=== PATIENT | male | born 1960 | race Caucasian/White ===

== ENCOUNTER → 2020-04-11 12:41 | Outpatient (BNVA) | payer MEDICAID, SELFPAY | PROVIDERS: Family Provider Internal Medicine; Visit Provider Specialist | DX: G62.9 Polyneuropathy, unspecified (principal); G47.31 Primary central sleep apnea | CPT/HCPCS: 99213 ==

== ENCOUNTER → 2020-08-30 15:10 | Outpatient (BNVA) | payer MEDICAID, SELFPAY | PROVIDERS: Family Provider Internal Medicine; PCP Internal Medicine; Visit Provider Specialist | DX: G47.31 Primary central sleep apnea (principal); G62.9 Polyneuropathy, unspecified; M54.5 Low back pain; F17.220 Nicotine dependence, chewing tobacco, uncomplicated | CPT/HCPCS: 99214 ==

== ENCOUNTER → 2021-02-28 10:56 | Outpatient (BNVA) | payer MEDICAID, SELFPAY | PROVIDERS: Family Provider Internal Medicine; PCP Internal Medicine; Visit Provider Specialist | DX: G60.9 Hereditary and idiopathic neuropathy, unspecified (principal); F17.220 Nicotine dependence, chewing tobacco, uncomplicated | CPT/HCPCS: 99213 ==

== ENCOUNTER → 2021-11-13 13:18 | Outpatient (BNVA) | payer MEDICAID, SELFPAY | PROVIDERS: Family Provider Internal Medicine; PCP Family Medicine Adult Medicine; Visit Provider Family Medicine Adult Medicine | DX: Z13.6 Encounter for screening for cardiovascular disorders (principal) | CPT/HCPCS: 80053; 80061; 83036; 84443; 85025 ==

== ENCOUNTER → 2022-06-05 09:01 | Outpatient (BNVA) | payer MEDICAID, SELFPAY | PROVIDERS: Family Provider Internal Medicine; PCP Family Medicine Adult Medicine; Visit Provider Specialist | DX: G62.89 Other specified polyneuropathies (principal); M54.50 Low back pain, unspecified | CPT/HCPCS: 99213; 99214 ==

== ENCOUNTER 2022-07-09 11:34 | Inpatient (IN) | payer MEDICAID, SELFPAY ==
[2022-07-09 11:36] VITALS: BP 144/79; PULSE 81; RESP 16; TEMP 36.7; O2SAT 99; BMI 32.5
[2022-07-09 12:22] LABS: Basophils # 0.1 10^3/uL (0.0-0.1); Basophils % 0.7 %; Eosinophils # 0.6 10^3/uL (0.0-0.8); Eosinophils % 3.5 %; Hematocrit 42.3 % (42.0-52.0); Hemoglobin 13.6 g/dL (11.7-16.6); Lymphocytes # 1.4 10^3/uL (0.8-4.8); Lymphocytes % 8.6 %; Mean Corpuscular HGB Conc 32.2 g/dL (30.0-36.0); Mean Corpuscular Hemoglobin 30.5 pg (28.0-34.0); Mean Corpuscular Volume 94.8 fl (80-94); Mean Platelet Volume 11.4 fL (7.4-10.4); Monocytes # 1.3 10^3/uL (0.2-0.9); Monocytes % 7.6 %; Neutrophils # 13.13 10^3/uL (1.8-7.7); Neutrophils % 78.6 %; Nucleated Red Blood Cells % 0 %; Platelet Count 247 10^3/cmm (130-400); Red Blood Count 4.46 10^6/uL (4.1-5.3); Red Cell Distribution Width 13.2 % (12.1-15.1); White Blood Count 16.7 10^3/uL (4.0-10.0)
--- NOTE | 2022-07-09 12:31 | ED_ITS ---
HPI - Extremity Problem General: Chief complaint: Extremity Problem,Nontraumatic Stated complaint: Right hand swelling Time Seen by Provider: 07/09/22 11:55 Source: patient Mode of arrival: ambulatory Limitations: no limitations History of Present Illness: 62-year-old male presents emergency room with s welling in his right hand. 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 He has low-grade subjective fever as well. He is just generally not feeling well he has not had any drainage from anywhere in the hand but he is having difficulty closing his fist because of the amount of swelling. There is redness focal to the first and second second and third metatarsal space areas. No loss of sensation in the hand. MD Complaint: extremity swelling Onset (ago): week(s) (1) Location: right and upper extremity (And) Quality: aching Radiation: proximal Relieving factors: nothing Exacerbating factors: nothing Associated symptoms: Reports arthralgias, myalgias and rash; Deny chest pain, fever(s) or short of breath Context: other (Recent minor trauma) Review of Systems Const: Denies: fever(s), chills, fatigue or malaise ENMT: Denies: throat pain, ear or mastoid pain, nasal discharge or nasal congestion Card: Denies: chest pain Resp: Denies: dyspnea, productive cough or non-productive cough GI: Denies: abdominal pain, nausea, vomiting, hematemesis, coffee ground emesis, diarrhea, constipation, bloating, hematochezia or melena : Denies: flank pain, difficulty urinating, dysuria, urinary frequency or urinary urgency Musc: Reports: extremity pain and extremity swelling Skin/Breast: Reports: rash, erythema and skin tenderness PFS ED PFSH: Medical History (Updated 07/12/22 @ 16:48 by Yon Mckeon DO) Central sleep apnea Chronic GERD COPD (chronic obstructive pulmonary disease) Familial peripheral neuropathy Hearing loss Hyperlipidemia Hypertension Obesity (BMI 30.0-34.9) Surgical History History of back surgery Family History Other CAD (coronary artery disease) Cancer Social History Smoking and tobacco status: current every day smoker smokeless tobacco Smokeless tobacco user: chewing tobacco Smokeless tobacco details: 4 cans a weeks Alcohol intake: current Alcohol intake frequency: few times a week History of recent travel: No Physical Exam Const: GENERAL APPEARANCE: cooperative and comfortable ORIENTATION/CONSCIOUSNESS: Yes awake HENMT: COMMON NORMALS: normocephalic, atraumatic and hearing grossly normal bilaterally HEAD & SCALP: normocephalic and atraumatic Resp: COMMON NORMALS: normal respiratory effort, No retractions, No use of ac cessory muscles and clear to auscultation bilaterally AUSCULTATION: clear to auscultation bilaterally Cardio: COMMON NORMALS: regular rate, regular rhythm and No murmurs present (Cardio) RATE: regular rate RHYTHM: regular rhythm GI: COMMON NORMALS: Soft to palpation and No hepatosplenomegaly present AUSCULTATION: Yes normoactive bowel sounds PALPATION: Yes Soft to palpation, No Tenderness to palpation present (GI), No Guarding due to palpation present ( GI) and Yes No hepatosplenomegaly present Extremity: OTHER: Swelling of the right hand particularly over the second and third fingers. There is proximal lymph and genetic change extending to the elbow no epitrochlear or axillary nodes. Tender on palpation no abscess formation. 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 I am concerned about the degree of swelling and the rapid onset. Discussed with orthopedics. There is no clear abscess but there is a phlegmon potentially early forming abscess. Will admit to hospitalist start on IV vancomycin consult orthopedics. I discussed Dr. Escalante he is willing to consult on the patient. Medical Records I reviewed the patient's medical records. Lab Data I reviewed the patient's lab results. : 07/12/22 01:59 07/12/22 01:[address] 07/09/22 15:42 IMPRESSION: 1. No foreign body or fracture. 2. Large amount of cellulitis and phlegmonous changes, most significantly centered around the second metacarpal and base of the thumb. At this time there is no well formed enhancing abscess but there is a large amount soft tissue inflammation and phlegmon within the thenar eminence. Laboratory Results WBC 16.2 10^3/uL (4.0-10.0) H 07/10/22 05:05 RBC 4.17 10^6/uL (4.1-5.3) 07/10/22 05:05 Hgb 12.6 g/dL (11.7-16.6) 07/10/22 05:05 Hct 40.1 % (42.0-52.0) L 07/10/22 05:05 MCV 96.2 fl (80-94) H 07/10/22 05:05 MCH 30.2 pg (28.0-34.0) 07/10/22 05:05 MCHC 31.4 g/dL (30.0-36.0) 07/10/22 05:05 RDW 13.3 % (12.1-15.1) 07/10/22 05:05 Plt Count 240 10^3/cmm (130-400) 07/10/22 05:05 MPV 11.4 fL (7.4-10.4) H 07/10/22 05:05 Neut % (Auto) 77.7 % 07/10/22 05:05 Lymph % (Auto) 9.1 % 07/10/22 05:05 [place] % (Auto) 7.8 % 07/10/22 05:05 Eos % (Auto) 3.8 % 07/10/22 05:05 Baso % (Auto) 0.7 % 07/10/22 05:05 Neut # (Auto) 12.56 10^3/uL (1.8-7.7) H 07/10/22 05:05 Lymph # (Auto) 1.5 10^3/uL (0.8-4.8) 07/10/22 05:05 [place] # (Auto) 1.3 10^3/uL (0.2-0.9) H 07/10/22 05:05 Eos # (Auto) 0.6 10^3/uL (0.0-0.8) 07/10/22 05:05 Baso # (Auto) 0.1 10^3/uL (0.0-0.1) 07/10/22 05:05 Nucleated RBC % (auto) 0 % 07/10/22 05:05 Nucleated RBCs # 0.0 /100WBC 07/10/22 05:05 ESR 36 mm/hr (0-10) H 07/09/22 12:07 Sodium 135 mmol/L (136-145) L 07/10/22 06:08 Potassium 4.3 mmol/L (3.5-5.1) 07/10/22 06:08 Chloride 102 mmol/L (98-107) 07/10/22 06:08 Carbon Dioxide 23 mmol/L (22-29) 07/10/22 06:08 Anion Gap 14.3 (5-19) 07/10/22 06:08 BUN 16 mg/dL (8-23) 07/10/22 06:08 Creatinine 1.0 mg/dL (0.7-1.2) 07/10/22 06:08 GFR Calculation 76.2 mL/min (90-130) L 07/10/22 06:08 Glucose 123 mg/dL (65-115) H 07/10/22 06:08 Calculated Osmolality 283 mOsm/kg (285-295) L 07/10/22 06:08 Calcium 9.4 mg/dL (8.5-10.5) 07/10/22 06:08 Total Bilirubin 0.4 mg/dL (0.15-1.2) 07/10/22 06:08 AST 9 U/L (0-40) 07/10/22 06:08 ALT 12 U/L (0-41) 07/10/22 06:08 Alkaline Phosphatase 88 U/L (40-130) 07/10/22 06:08 C-Reactive Protein 128.7 mg/L (0.0-4.9) H 07/10/22 06:08 Total Protein 6.6 g/dL (6.6-8.7) 07/10/22 06:08 Albumin 3.6 g/dL (3.5-5.2) 07/10/22 06:08 Globulin 3.0 g/dL (1.3-4.6) 07/10/22 06:08 Procalcitonin 0.10 ng/mL (0-0.5) 07/09/22 12:07 Discharge Plan Discharge Patient Disposition: Admitted As Inpatient Admit Provider: Abdiel Cid Clinical Impression: Abscess of right hand Condition: Stable Discharge Diet: Cardiac Discharge Activity: Increase activity as tolerated Coding Level of Care Code ED 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
[2022-07-09 12:38] LABS: Anion Gap 16.9 (5-19); Blood Urea Nitrogen 19 mg/dL (8-23); Calcium 9.6 mg/dL (8.5-10.5); Carbon Dioxide 24 mmol/L (22-29); Chloride 100 mmol/L (98-107); Glomerular Filtration Rate 68.3 mL/min (90-130); Glucose 112 mg/dL (65-115); Osmolality Calculated 287 mOsm/kg (285-295); Potassium 3.9 mmol/L (3.5-5.1); Sodium 137 mmol/L (136-145)
[2022-07-09] MEDS: tetanus-dipt-pertussis 0.5 mL SDV IM (12:47)
[2022-07-09] MEDS: cefTRIAXone 1,000 MG in sodium chloride 0.9% (plus) 50 ML 100 MG IV (12:48)
[2022-07-09 15:27] LABS: Erythrocyte Sedimentation Rate 36 mm/hr (0-10)
[2022-07-09] MEDS: ketorolac 30 mg/mL INJ IVP (15:33)
[2022-07-09 15:36] LABS: C Reactive Protein 94.1 mg/L (0.0-4.9)
--- NOTE | 2022-07-09 15:36 | PM.HP ---
Providers/Chief Complaint Primary Care Provider: Tyler Garcia MD Chief Complaint: Right hand swelling History of Present Illness Feliciano Malik is a 62 year old male present to the hospital for worsening of right-sided hand swelling and redness. 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 His wound healed but now last 36 hours he started noticing swelling of his right hand which has progressed all the way up to his elbow he has not noticed any fever, nausea, vomiting, chills. He does not have any history of diabetes or congestive heart failure. He does smoke tobacco on and off, he uses smokeless tobacco and drinks occasionally. In the ER he has been diagnosed with progressive cellulitis, Dr. Escalante has been consulted from the ER physician to take a look at his hand patient has severe leukocytosis 16,000, ESR is 36, I have requested CT scan of hand with contrast Review of Systems Const: Denies: chills Eyes: Denies: change in vision ENMT: Denies: throat pain Card: Denies: chest pain Resp: Denies: dyspnea GI: Denies: abdominal pain : Denies: flank pain Musc: Denies: neck pain Skin/Breast: Reports: rash, erythema, skin tenderness and skin swelling Neuro: Denies: headache(s) Psych: Denies: anxiety Endo: Denies: polyuria Jose M/Lymph: Denies: easy bruising All/Imm: Denies: urticaria Medications/Allergies Home Medications Medication Instructions Recorded Confirmed Last Taken Type montelukast 10 mg tablet 10 mg PO DAILY breathing #30 tabs 10/10/21 07/09/22 07/08/22 Rx albuterol sulfate 90 mcg/actuation See Rx Instructions .Route 06/04/22 07/09/22 Unknown Rx aerosol inhaler (ProAir HFA) .COMPLEX #8.5 grams cyclobenzaprine 10 mg tablet 10 mg PO TID PRN Muscle Pain 07/09/22 07/09/22 Unknown History fluticasone 250 mcg-salmeterol 50 2 inh inhalation BID 07/09/22 07/09/22 07/08/22 History mcg/dose blistr powdr for inhalation (Advair Diskus) gabapentin 800 mg tablet 800 mg PO QID 07/09/22 07/09/22 07/08/22 History lisinopril 5 mg tablet 5 mg PO DAILY 07/09/22 07/09/22 07/08/22 History omeprazole 20 mg capsule,delayed 20 mg PO DAILY 07/09/22 07/09/22 07/08/22 History release trazodone 50 mg tablet 50 mg PO BEDTIME 07/09/22 07/09/22 07/08/22 History Allergies Allergy/AdvReac Type Severity Reaction Status Date / Time peppermint Allergy Unknown Unknown Verified 06/05/22 09:17 PFSH Acute PFSH: Medical History (Updated 07/09/22 @ 15:45 by Shonna Baumann MD) Central sleep apnea Chronic GERD COPD (chronic obstructive pulmonary disease) Familial peripheral neuropathy Hearing loss Hyperlipidemia Hypertension Obesity (BMI 30.0-34.9) Surgical History History of back surgery Family History Other CAD (coronary artery disease) Cancer Social History Smoking and tobacco status: current every day smoker smokeless tobacco Smokeless tobacco user: chewing tobacco Smokeless tobacco details: 4 cans a weeks Alcohol intake: current Alcohol intake frequency: few times a week History of recent travel: No Vitals/I&O/Wt Last Vital Signs Temp 98.0 F 07/09/22 11:36 Pulse 81 07/09/22 11:36 Resp 16 07/09/22 11:36 BP 144/79 07/09/22 11:36 Pulse Ox 99 07/09/22 11:36 O2 Del Method 07/09/22 11:36 Weight last 48 hrs Weight 97.069 kg Physical Exam Narrative: Patient is awake and alert Currently on room air Very pleasant cooperative Looks euvolemic No sign of heart failure S1, S2 No audible stridor or wheezing Right hand swelling starts from dorsum of hand extending all the way up to wrist and redness is extending all the way up to the elbow Nontender to touch No purulent drainage Erythematous No signs of vascular compromise Patient is very pleasant and cooperative Nonfocal neuro exam Data : 07/09/22 12:07 07/09/22 12:07 Micro: Microbiology 07/09/22 12:07 Blood Culture - Preliminary Blood SPECIMEN COLLECTED 07/09/22 12:07 Blood Culture - Preliminary Blood SPECIMEN COLLECTED A&P Assessment and plan (1) Cellulitis: Plan Progressive cellulitis of hand No signs of purulence Will obtain CT of the hand with contrast rule out abscess I will give him clindamycin for toxin suppression and add vancomycin and Zosyn for now Dr. Escalante has been consulted We will keep him n.p.o. after midnight in case he needs any intervention I will hold off on DVT prophylaxis SCDs for DVT prophylaxis for now Regular diet for now N.p.o. 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
[2022-07-09 15:37] VITALS: BP 147/81; PULSE 78; RESP 17; O2SAT 99
--- NOTE | 2022-07-09 15:42 | CT_ITS ---
WS: [id number] CT RIGHT HAND WITH CONTRAST. HISTORY: Progressive cellulitis of hand Technique: All [facility] scans at [facility] use at least one of these dose optimization techniques: automated exposure control; mA and/or kV adjustment per patient size (includes targeted exams where dose is matched to clinical indication); or iterative reconstruction. Contrast: Omnipaque 350; 100 mL IV. DLP: 124.58 mGy-cm. COMPARISON: None available. There is extensive soft tissue edema along the dorsal surface of the hand. More focal soft tissue thi ckening with enhancement and edema surrounding the second metacarpal and proximal second phalanx. Add itional inflammatory changes at the base of the thumb. There is no well formed pocket there is signif icant inflammatory and phlegmonous changes. No focal well circumscribed abscess. No foreign body is i dentified. There are no fractures or lytic lesions. No evidence for osteomyelitis. CT/[place] con [id number] IMPRESSION: 1. No foreign body or fracture. 2. Large amount of cellulitis and phlegmonous changes, most significantly cent ered around the second metacarpal and base of the thumb. At this time there is no well formed enhancing abscess but there is a large amount soft tissue inflam mation and phlegmon within the thenar eminence.
[2022-07-09] MEDS: iohexol 350 mg/mL 500 mL Btl (per mL) IV (16:02)
[2022-07-09 17:17] VITALS: BP 145/79; PULSE 82; RESP 17; O2SAT 98
--- NOTE | 2022-07-09 17:19 | PM.CONSULT ---
Providers/Reason For Consult Consulting Physician/Specialty*: Landry Escalante DO/orthopedic surgery Reason for Consult*: Right hand infection with lymphangitis Requesting Physician: Dr. Mckeon Attending Physician: Shonna Baumann MD Primary Care Provider: Tyler Garcia MD History of Present Illness History of Present Illness Feliciano Malik is a 62 year old male who presents emergency department with worsening right hand swelling and erythema. 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 He states the wound had subsequently healed this was on the radial aspect of the right index finger near the level of the PIP joint stated over the past 36 hours noted significant swelling to the right hand with erythema tracking proximally. Denies any fevers chills chest pain shortness of breath nausea vomiting. Does not have any history of diabetes mellitus. No other complaints at this time. Orthopedics was consulted for evaluation and treatment recommendations. Review of Systems General: Reports: 10 or more systems reviewed and unremarkable except in HPI and below Const: Denies: fever(s) or chills Card: Denies: chest pain Resp: Denies: dyspnea GI: Denies: nausea or vomiting Musc: Reports: extremity pain and extremity swelling Medications/Allergies Home Medications Medication Instructions Recorded Confirmed Last Taken Type montelukast 10 mg tablet 10 mg PO DAILY breathing #30 tabs 10/10/21 07/09/22 07/08/22 Rx albuterol sulfate 90 mcg/actuation See Rx Instructions .Route 06/04/22 07/09/22 Unknown Rx aerosol inhaler (ProAir HFA) .COMPLEX #8.5 grams cyclobenzaprine 10 mg tablet 10 mg PO TID PRN Muscle Pain 07/09/22 07/09/22 Unknown History fluticasone 250 mcg-salmeterol 50 2 inh inhalation BID 07/09/22 07/09/22 07/08/22 History mcg/dose blistr powdr for inhalation (Advair Diskus) gabapentin 800 mg tablet 800 mg PO QID 07/09/22 07/09/22 07/08/22 History lisinopril 5 mg tablet 5 mg PO DAILY 07/09/22 07/09/22 07/08/22 History omeprazole 20 mg capsule,delayed 20 mg PO DAILY 07/09/22 07/09/22 07/08/22 History release trazodone 50 mg tablet 50 mg PO BEDTIME 07/09/22 07/09/22 07/08/22 History Allergies Allergy/AdvReac Type Severity Reaction Status Date / Time peppermint Allergy Unknown Unknown Verified 06/05/22 09:17 PFSH Acute PFSH: Medical History (Updated 07/09/22 @ 17:29 by Landry Escalante DO) Central sleep apnea Chronic GERD COPD (chronic obstructive pulmonary disease) Familial peripheral neuropathy Hearing loss Hyperlipidemia Hypertension Obesity (BMI 30.0-34.9) Surgical History History of back surgery Family History Other CAD (coronary artery disease) Cancer Social History Smoking and tobacco status: current every day smoker smokeless tobacco Smokeless tobacco user: chewing tobacco Smokeless tobacco details: 4 cans a weeks Alcohol intake: current Alcohol intake frequency: few times a week History of recent travel: No Vitals/I&O/Wt Last Vital Signs Temp 98.0 F 07/09/22 11:36 Pulse 82 07/09/22 17:17 Resp 17 07/09/22 17:17 BP 145/79 07/09/22 17:17 Pulse Ox 98 07/09/22 17:17 O2 Del Method 07/09/22 17:17 07/09/22 07/09/22 07/09/22 06:59 14:59 22:59 Intake Total 50 / 50 Balance 50 / 50 Weight last 48 hrs Weight 214 lb Physical Exam Narrative: Patient is awake and alert Very pleasant cooperative Patient right hand elevated. Noticeable swelling about the dorsal aspect of the right hand radiating into the first webspace. Patient has most erythema over the radial aspect of the right index finger into the first webspace tracking proximally on the dorsal aspect of the arm with noticeable lymphangitis. No subcutaneous gas or bullae, compartments are soft and compressible. Patient has significant decreased range of motion of the hand secondary to pain and swelling. He has no pain with passive stretch of the flexor tendon sheath of the right index finger. There is a laceration that appears healed with a small eschar and scab this has no expressible drainage noted over the radial aspect of the index finger. No significant palpable fluctuance noted however significant dense cellulitis noted over the first webspace patient has severe tenderness to palpation over the first webspace wrapping over to the A1 olivier near to the base of the thumb as well as the dorsal aspect of the index finger. No pain with resistance of flexion and extension of the index finger. Flexor and extensor tendons appear to be intact. Minimal tenderness to palpation along the flexor tendon sheath distally. Sensation tact light touch distally to the radial/ulnar/median nerve distribution as well as radial and ulnar sides of the right index finger. No tenderness to palpation over A1 pulleys of middle ring and small fingers. Fingertips warm well-perfused brisk capillary refill less than 2 seconds radial pulse 2+. Data : 07/09/22 12:07 07/09/22 12:07 Micro: Microbiology 07/09/22 12:07 Blood Culture - Preliminary Blood SPECIMEN COLLECTED 07/09/22 12:07 Blood Culture - Preliminary Blood SPECIMEN COLLECTED Other CT: My impression: CT scan with contrast of the right hand reviewed by myself there is significant cellulitic changes and subcutaneous fat stranding no evidence of subcutaneous gas. There does appear to be a abscess within the first webspace. No fracture dislocation noted. Final read pending from radiologist but at this point time concerning findings for abscess of the right hand. A&P Assessment and plan (1) Cellulitis: (2) Abscess of right hand: Plan MDM: Feliciano is a pleasant 62-year-old male who presents today with worsening right hand swelling and erythema tracking proximally. On evaluation he has significant cellulitis over the first webspace and has significant tenderness palpation of this area. He does not have findings consistent with a for Knievel signs he does have some A1 tenderness but is more within his webspace. He has elevated white count as well as ESR and CRP. At this point time findings definitely concern for a right hand infection and possible abscess. I do have a CT scan of the right hand with contrast pending final read from radiologist however on my review there does appear to have a abscess within the first webspace as well as fat stranding concerning for cellulitis as well. This point time we will have patient have diet today but he should be n.p.o. at midnight. He was placed in a [place] sling elevation would recommend empiric antibiotics as well as scheduled IV Toradol and will reevaluate tomorrow. If patient's had minimal improvement with conservative treatment he may need surgical irrigation debridement of the right hand. Patient understands agrees with current plan. All questions answered. He was placed into a volar splint in [place] sling and will elevate overnight. Ice as needed. Appreciate hospitalist for admission and primary. [place] sling elevation right upper extremity Scheduled IV Toradol Empiric antibiotics IV Volar splint on in place N.p.o. 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 Fwd Diagnoses Cellulitis L03.90 Abscess of right hand L02.511 Time Spent (min) 50
[2022-07-09] MEDS: gabapentin 400 mg Capsule 800 MG PO (18:34)
[2022-07-09] MEDS: clindamycin 600 MG/50 ML PREMIX 100 MG IV (18:34)
--- NOTE | 2022-07-09 18:59 | PC.NURSE ---
received into room 268 at 1800 from er.report received.pt is alert and awake and oriented x 4.denies pain at present.oriented to room environment.instructed pt to call staff if needs to get up,for pain,or for any concerns /needs at all.pt verb understanding of instructions.right arm is elevated as ordered.
[2022-07-09] MEDS: piperacillin-tazobactam 3.375 GM in sodium chloride 0.9% (plus) 50 ML IV (19:26)
[2022-07-09 19:39] VITALS: BMI 32.5
[2022-07-09] MEDS: trazodone 50 mg Tablet PO (20:40)
[2022-07-09] MEDS: vancomycin 1,500 MG/300 ML PIGGYBACK 200 MG IV (23:08)
[2022-07-09 23:14] VITALS: RESP 18
[2022-07-09] MEDS: morphine IR 15 mg Tablet PO (23:14)
[2022-07-10] VITALS (21 sets, daily range): BP systolic 116–174; BP diastolic 57–84; PULSE 67–84; RESP 12–18; TEMP 36.4–37.8; O2SAT 95–100
[2022-07-10] MEDS: ipratropium-albuterol 3 mL Neb INHALATION ×3 (00:31→14:09)
[2022-07-10] MEDS: clindamycin 600 MG/50 ML PREMIX 100 MG IV ×2 (03:05→08:50)
[2022-07-10] MEDS: piperacillin-tazobactam 3.375 GM in sodium chloride 0.9% (plus) 50 ML IV ×3 (03:52→18:25)
[2022-07-10 05:36] LABS: Basophils # 0.1 10^3/uL (0.0-0.1); Basophils % 0.7 %; Eosinophils # 0.6 10^3/uL (0.0-0.8); Eosinophils % 3.8 %; Hematocrit 40.1 % (42.0-52.0); Hemoglobin 12.6 g/dL (11.7-16.6); Lymphocytes # 1.5 10^3/uL (0.8-4.8); Lymphocytes % 9.1 %; Mean Corpuscular HGB Conc 31.4 g/dL (30.0-36.0); Mean Corpuscular Hemoglobin 30.2 pg (28.0-34.0); Mean Corpuscular Volume 96.2 fl (80-94); Mean Platelet Volume 11.4 fL (7.4-10.4); Monocytes # 1.3 10^3/uL (0.2-0.9); Monocytes % 7.8 %; Neutrophils # 12.56 10^3/uL (1.8-7.7); Neutrophils % 77.7 %; Nucleated Red Blood Cells % 0 %; Platelet Count 240 10^3/cmm (130-400); Red Blood Count 4.17 10^6/uL (4.1-5.3); Red Cell Distribution Width 13.3 % (12.1-15.1); White Blood Count 16.2 10^3/uL (4.0-10.0)
[2022-07-10 06:39] LABS: Alanine Aminotransferase 12 U/L (0-41); Albumin Level 3.6 g/dL (3.5-5.2); Alkaline Phosphatase 88 U/L (40-130); Anion Gap 14.3 (5-19); Aspartate Amino Transferase 9 U/L (0-40); Blood Urea Nitrogen 16 mg/dL (8-23); C Reactive Protein 128.7 mg/L (0.0-4.9); Calcium 9.4 mg/dL (8.5-10.5); Carbon Dioxide 23 mmol/L (22-29); Chloride 102 mmol/L (98-107); Glomerular Filtration Rate 76.2 mL/min (90-130); Glucose 123 mg/dL (65-115); Osmolality Calculated 283 mOsm/kg (285-295); Potassium 4.3 mmol/L (3.5-5.1); Sodium 135 mmol/L (136-145); Total Bilirubin 0.4 mg/dL (0.15-1.2); Total Protein 6.6 g/dL (6.6-8.7)
[2022-07-10] MEDS: amlodipine 5 mg Tablet PO (08:39)
[2022-07-10] MEDS: pantoprazole DR 40 mg Tablet PO (08:39)
[2022-07-10] MEDS: montelukast sodium 10 mg Tablet PO (08:39)
[2022-07-10] MEDS: gabapentin 400 mg Capsule 800 MG PO ×4 (08:40→21:53)
[2022-07-10] MEDS: morphine 4 mg/mL SDV 1 mL IVP ×2 (08:43→13:41)
--- NOTE | 2022-07-10 09:15 | PM.PN ---
Subjective Subjective: Patient seen evaluate in the morning. Patient splint dressing taken down patient's had minimal to no improvement. Patient's had IV antibiotics, has been hung up in a [place] sling with strict elevation as well as been on IV Toradol. He has focalized his pain into the first webspace. He still has erythema and cellulitis and decreased range of motion. Given failure of conservative treatment would recommend surgical intervention of right hand irrigation and debridement. He has been n.p.o. since midnight. I did review the CT scan read by the radiologist which states there is some cellulitis and a phlegmon but no ring-enhancing abscess at this point time however given failure of conservative treatment would recommend surgical intervention. Patient understands risk benefits complication alternatives surgery at this point time agrees to proceed with surgical intervention. Risks include but are not limited to make it better, make it worse, worsening infection, wound complications, decreased function and range of motion of the hand. Understanding these risks he agrees to proceed with surgical intervention. Vitals/I&O/Wt Last Vital Signs Temp 98.5 F 07/10/22 08:00 Pulse 73 07/10/22 08:41 Resp 14 07/10/22 08:43 BP 127/69 07/10/22 08:00 Pulse Ox 96 07/10/22 08:41 O2 Del Method 07/10/22 08:41 07/09/22 07/10/22 07/10/22 22:59 06:59 14:59 Intake Total 350 / 400 400 / 800 50 / 50 Output Total 400 / 400 200 / 200 Balance 350 / 400 0 / 400 -150 / -150 Weight last 48 hrs Weight 214 lb Weight 214 lb Physical Exam Narrative: Examination right hand splint taken down as well as dressing. Examination of the right hand shows maintained cellulitis over the first webspace and dorsal aspect of the hand mild improvement of lymphangitis proximally. He has significant tenderness to palpation and to me it feels like palpable tense fluctuance over the first webspace. He has no pain with micromotion of the thumb joints or the index finger but due to the swelling has decreased range of motion and sensation is intact light touch distally. Distal pulses are palpable. Brisk capillary refill less than 2 seconds. Mild tenderness over the A1 olivier but no tenderness over the flexor tendon sheath of the right index finger. Data : 07/11/22 04:55 07/11/22 04:55 Micro: Microbiology 07/09/22 12:07 Blood Culture - Preliminary Blood SPECIMEN COLLECTED 07/09/22 12:07 Blood Culture - Preliminary Blood SPECIMEN COLLECTED A&P Assessment and plan (1) Abscess of right hand: (2) Cellulitis: Plan N.p.o. since midnight Nonweightbearing right upper extremity Volar splint in place Elevation in [place] sling IV antibiotics Toradol Internal medicine is primary Failure to respond to conservative treatment?recommend surgical intervention of right hand irrigation debridement with cultures today. Patient understands and agrees to proceed with current plan. All questions answered at this time. Attestations Medical Necessity Statement*: Patient has right hand infection requiring hospitalization and surgical intervention Coding Level of Care Code Acute Bisque Kiln Drawer for Adalgisa Mackenzie Diagnoses Abscess of right hand L02.511 Cellulitis L03.90 Time Spent (min) 30
--- NOTE | 2022-07-10 09:57 | P.PN_ITS ---
Subjective Subjective: Going for I&D today Low-grade fever Going for I&D today N.p.o. Vitals/I&O/Wt Last Vital Signs Temp 98.5 F 07/10/22 08:00 Pulse 73 07/10/22 08:41 Resp 14 07/10/22 08:43 BP 127/69 07/10/22 08:00 Pulse Ox 96 07/10/22 08:41 O2 Del Method 07/10/22 08:41 07/09/22 07/10/22 07/10/22 22:59 06:59 14:59 Intake Total 350 / 400 400 / 800 100 / 100 Output Total 400 / 400 200 / 200 Balance 350 / 400 0 / 400 -100 / -100 Weight last 48 hrs Weight 97.069 kg Weight 97.069 kg Physical Exam Narrative: Awake and alert Right arm covered with dressing He has tried to keep his arm above heart level Awake and alert Nonfocal neuro exam No signs of sepsis or toxic appearance Nonfocal neuro exam currently on room air Pleasant and cooperative Abdomen soft Data : 07/10/22 05:05 07/10/22 06:08 Micro: Microbiology 07/09/22 12:07 Blood Culture - Preliminary Blood SPECIMEN COLLECTED 07/09/22 12:07 Blood Culture - Preliminary Blood SPECIMEN COLLECTED A&P Assessment and plan (1) Abscess of right hand: (2) Cellulitis: Plan Right hand metacarpal space abscess formation Going for I&D today He can eat and we can start DVT prophylaxis after his surgery Plan to keep him here 1 more day and continue IV antibiotics He will most likely be able to go home by tomorrow Full code N.p.o. 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
[2022-07-10] MEDS: vancomycin 1,500 MG/300 ML PIGGYBACK 200 MG IV (12:58)
--- NOTE | 2022-07-10 14:35 | P.ANESASSM_ITS ---
Pre-Anesthetic Assessment Height/Weight: Height 1.73 m Weight 97.069 kg Temp Pulse Resp BP Pulse Ox O2 Del Method 98.8 F 78 16 127/72 97 07/10/22 11:55 07/10/22 14:18 07/10/22 14:18 07/10/22 11:55 07/10/22 14:18 07/10/22 14:18 Operation Date: 07/10/22 16:10 Proposed Procedures p Incision & Drainage Upper Extremity(Right) - Landry [place], DO Familial anesthetic complications: none Was Beta Ashish taken within 24 hours: N/A Was Clonidine taken within 24 hours: N/A Last intake: > 8hrs Social No alcohol and No tobacco Exam alert, oriented x 3, clear to auscultation bilaterally and regular rate & rhythm Airway Mallampati: Class II Dentition: full Pulmonary Chronic Obstructive Pulmonary Disease CV/HEM Hypertension GI Gastroesophageal Reflux Disease Metabolic Morbid Obesity Anesthetic Plan ASA status: 3 Anesthesia: MAC and Regional (specify below) Risk of > 500 ml blood loss (7ml/kg in children): No Medications/Allergies Home Medications Medication Instructions Recorded Confirmed Last Taken Type montelukast 10 mg tablet 10 mg PO DAILY breathing #30 tabs 10/10/21 07/09/22 07/08/22 Rx cyclobenzaprine 10 mg tablet 10 mg PO TID PRN Muscle Pain 07/09/22 07/09/22 Unknown History fluticasone 250 mcg-salmeterol 50 2 inh inhalation BID 07/09/22 07/09/22 07/08/22 History mcg/dose blistr powdr for inhalation (Advair Diskus) gabapentin 800 mg tablet 800 mg PO QID 07/09/22 07/09/22 07/08/22 History lisinopril 5 mg tablet 5 mg PO DAILY 07/09/22 07/09/22 07/08/22 History omeprazole 20 mg capsule,delayed 20 mg PO DAILY 07/09/22 07/09/22 07/08/22 History release trazodone 50 mg tablet 50 mg PO BEDTIME 07/09/22 07/09/22 07/08/22 History albuterol sulfate 90 mcg/actuation 2 puff inhalation Q6H PRN 07/10/22 Unknown Rx aerosol inhaler (Ventolin HFA) shortness of breath or wheezing #8.5 grams Allergies Allergy/AdvReac Type Severity Reaction Status Date / Time peppermint Allergy Unknown Unknown Verified 06/05/22 09:17 Current Medications Generic Name Dose Route Start Last Admin Trade Name Luisq PRN Reason Stop Dose Admin Albuterol/Ipratropium 3 ml 07/09/22 17:07 07/10/22 14:09 Ipratropium-Albuterol 3 Ml Neb INHALATION 3 ml Q6H PRN Administration SHORTNESS OF BREATH Amlodipine Besylate 5 mg 07/10/22 09:00 07/10/22 08:39 Amlodipine 5 Mg Tablet PO 5 mg DAILY AYALA Administration Gabapentin 800 mg 07/09/22 17:30 07/10/22 12:58 Gabapentin 400 Mg Capsule PO 800 mg QID AYALA Administration Piperacillin Sod/Tazobactam 50 mls @ 12.5 mls/hr 07/09/22 19:00 07/10/22 12:58 Sod 3.375 gm/ Sodium Chloride IV 12.5 mls/hr Q8H AYALA Administration Protocol Clindamycin HCl/Dextrose 600 mg in 50 mls @ 100 mls/hr 07/09/22 18:00 07/10/22 09:44 Cleocin IV 07/10/22 17:59 Infused Q8H AYALA Infusion Protocol Vancomycin/PEG/NADA/Lysine/Water 1,500 mg in 300 mls @ 200 mls/hr 07/10/22 00:00 07/10/22 12:58 Vancocin IV 200 mls/hr Q12H AYALA Administration Montelukast Sodium 10 mg 07/10/22 09:00 07/10/22 08:39 Montelukast Sodium 10 Mg Tablet PO 10 mg DAILY AAYLA Administration Morphine Sulfate 4 mg 07/09/22 17:07 07/10/22 13:41 Morphine 4 Mg/Ml Sdv 1 Ml IVP 4 mg Q4H PRN Administration SEVERE PAIN Morphine Sulfate 15 mg 07/09/22 17:07 07/09/22 23:14 Morphine Ir 15 Mg Tablet PO 15 mg Q6H PRN Administration MODERATE pAIN Pantoprazole Sodium 40 mg 07/10/22 09:00 07/10/22 08:[address] 40 Mg Tablet PO 40 mg DAILY AYALA Administration Trazodone HCl 50 mg 07/09/22 21:00 07/09/22 20:40 Trazodone 50 Mg Tablet PO 50 mg BEDTIME AYALA Administration PFS Anesthesia Medical History (Updated 07/09/22 @ 17:29 by Landry Escalante DO) Central sleep apnea Chronic GERD COPD (chronic obstructive pulmonary disease) Familial peripheral neuropathy Hearing loss Hyperlipidemia Hypertension Obesity (BMI 30.0-34.9) Surgical History History of back surgery Family History Other CAD (coronary artery disease) Cancer Social History Smoking and tobacco status: current every day smoker smokeless tobacco Smokeless tobacco user: chewing tobacco Smokeless tobacco details: 4 cans a weeks Alcohol intake: current Alcohol intake frequency: few times a week History of recent travel: No Data Anesthesia : 07/10/22 05:05 07/10/22 06:08 Short CBC 07/09/22 07/10/22 Range/Units 12:07 05:05 WBC 16.7 H 16.2 H (4.0-10.0) 10^3/uL Hgb 13.6 12.6 (11.7-16.6) g/dL Hct 42.3 40.1 L (42.0-52.0) % MCV 94.8 H 96.2 H (80-94) fl Plt Count 247 240 (130-400) 10^3/cmm Neut % (Auto) 78.6 77.7 % Neut # (Auto) 13.13 H 12.56 H (1.8-7.7) 10^3/uL BMP 07/09/22 07/10/22 07/10/22 12:07 05:05 06:08 Sodium 137 Cancelled 135 L Potassium 3.9 Cancelled 4.3 Chloride 100 Cancelled 102 Carbon Dioxide 24 Cancelled 23 BUN 19 Cancelled 16 Creatinine 1.1 Cancelled 1.0 Glucose 112 Cancelled 123 H Calcium 9.6 Cancelled 9.4 Liver Function 07/10/22 Range/Units 06:08 Total Bilirubin 0.4 (0.15-1.2) mg/dL AST 9 (0-40) U/L ALT 12 (0-41) U/L Alkaline Phosphatase 88 (40-130) U/L Albumin 3.6 (3.5-5.2) g/dL Coags 07/09/22 07/09/22 07/10/22 12:07 12:07 05:05 ESR 36 H C-Reactive Protein 94.1 H Cancelled 07/10/22 06:08 ESR C-Reactive Protein 128.7 H Microbiology 07/09/22 12:07 Blood Culture - Preliminary Blood NEGATIVE TO DATE 07/09/22 12:07 Blood Culture - Preliminary Blood NEGATIVE TO DATE Cardiac Studies: No Data to Display
--- NOTE | 2022-07-10 14:57 | PC.NURSE ---
patient off unit to surgery.
--- NOTE | 2022-07-10 15:07 | ANES.PREANE2 ---
Pre-Anesthetic Assessment Height/Weight: Height 1.73 m Weight 97.069 kg Temp Pulse Resp BP Pulse Ox O2 Del Method 97.7 F 78 18 117/57 96 07/10/22 14:43 07/10/22 14:43 07/10/22 14:43 07/10/22 14:43 07/10/22 14:43 07/10/22 14:43 Operation Date: 07/10/22 16:10 Proposed Procedures p Incision & Drainage Upper Extremity(Right) - Landry Love, DO Familial anesthetic complications: None Was Beta Ashish taken within 24 hours: N/A Was Clonidine taken within 24 hours: N/A Last intake: Intake Last Liquid Date 07/09/22 Last Liquid Time 22:00 Last Solid Date 07/09/22 Last Solid Time 22:00 Social No alcohol and No tobacco Exam alert, oriented x 3, clear to auscultation bilaterally and regular rate & rhythm Airway Mallampati: Class III Dentition: full Pulmonary Chronic Obstructive Pulmonary Disease CV/HEM Hypertension GI Gastroesophageal Reflux Disease Metabolic Hyperlipidemia and Morbid Obesity Anesthetic Plan ASA status: 3 Anesthesia: MAC and Regional (specify below) Risk of > 500 ml blood loss (7ml/kg in children): No Medications/Allergies Home Medications Medication Instructions Recorded Confirmed Last Taken Type montelukast 10 mg tablet 10 mg PO DAILY breathing #30 tabs 10/10/21 07/09/22 07/08/22 Rx cyclobenzaprine 10 mg tablet 10 mg PO TID PRN Muscle Pain 07/09/22 07/09/22 Unknown History fluticasone 250 mcg-salmeterol 50 2 inh inhalation BID 07/09/22 07/09/22 07/08/22 History mcg/dose blistr powdr for inhalation (Advair Diskus) gabapentin 800 mg tablet 800 mg PO QID 07/09/22 07/09/22 07/08/22 History lisinopril 5 mg tablet 5 mg PO DAILY 07/09/22 07/09/22 07/08/22 History omeprazole 20 mg capsule,delayed 20 mg PO DAILY 07/09/22 07/09/22 07/08/22 History release trazodone 50 mg tablet 50 mg PO BEDTIME 07/09/22 07/09/22 07/08/22 History albuterol sulfate 90 mcg/actuation 2 puff inhalation Q6H PRN 07/10/22 Unknown Rx aerosol inhaler (Ventolin HFA) shortness of breath or wheezing #8.5 grams Allergies Allergy/AdvReac Type Severity Reaction Status Date / Time peppermint Allergy Unknown Unknown Verified 06/05/22 09:17 Current Medications Generic Name Dose Route Start Last Admin Trade Name Freq PRN Reason Stop Dose Admin Albuterol/Ipratropium 3 ml 07/09/22 17:07 07/10/22 14:09 Ipratropium-Albuterol 3 Ml Neb INHALATION 3 ml Q6H PRN Administration SHORTNESS OF BREATH Amlodipine Besylate 5 mg 07/10/22 09:00 07/10/22 08:39 Amlodipine 5 Mg Tablet PO 5 mg DAILY AYALA Administration Gabapentin 800 mg 07/09/22 17:30 07/10/22 12:58 Gabapentin 400 Mg Capsule PO 800 mg QID AYALA Administration Piperacillin Sod/Tazobactam 50 mls @ 12.5 mls/hr 07/09/22 19:00 07/10/22 12:58 Sod 3.375 gm/ Sodium Chloride IV 12.5 mls/hr Q8H AYALA Administration Protocol Clindamycin HCl/Dextrose 600 mg in 50 mls @ 100 mls/hr 07/09/22 18:00 07/10/22 09:44 Cleocin IV 07/10/22 17:59 Infused Q8H AYALA Infusion Protocol Vancomycin/PEG/NADA/Lysine/Water 1,500 mg in 300 mls @ 200 mls/hr 07/10/22 00:00 07/10/22 12:58 Vancocin IV 200 mls/hr Q12H AYALA Administration Montelukast Sodium 10 mg 07/10/22 09:00 07/10/22 08:39 Montelukast Sodium 10 Mg Tablet PO 10 mg DAILY AYALA Administration Morphine Sulfate 4 mg 07/09/22 17:07 07/10/22 13:41 Morphine 4 Mg/Ml Sdv 1 Ml IVP 4 mg Q4H PRN Administration SEVERE PAIN Morphine Sulfate 15 mg 07/09/22 17:07 07/09/22 23:14 Morphine Ir 15 Mg Tablet PO 15 mg Q6H PRN Administration MODERATE pAIN Pantoprazole Sodium 40 mg 07/10/22 09:00 07/10/22 08:[address] 40 Mg Tablet PO 40 mg DAILY AYALA Administration Trazodone HCl 50 mg 07/09/22 21:00 07/09/22 20:40 Trazodone 50 Mg Tablet PO 50 mg BEDTIME AYALA Administration [facility] Anesthesia Medical History (Updated 07/09/22 @ 17:29 by Landry Escalante DO) Central sleep apnea Chronic GERD COPD (chronic obstructive pulmonary disease) Familial peripheral neuropathy Hearing loss Hyperlipidemia Hypertension Obesity (BMI 30.0-34.9) Surgical History History of back surgery Family History Other CAD (coronary artery disease) Cancer Social History Smoking and tobacco status: current every day smoker smokeless tobacco Smokeless tobacco user: chewing tobacco Smokeless tobacco details: 4 cans a weeks Alcohol intake: current Alcohol intake frequency: few times a week History of recent travel: No Data Anesthesia : 07/10/22 05:05 07/10/22 06:08 Short CBC 07/09/22 07/10/22 Range/Units 12:07 05:05 WBC 16.7 H 16.2 H (4.0-10.0) 10^3/uL Hgb 13.6 12.6 (11.7-16.6) g/dL Hct 42.3 40.1 L (42.0-52.0) % MCV 94.8 H 96.2 H (80-94) fl Plt Count 247 240 (130-400) 10^3/cmm Neut % (Auto) 78.6 77.7 % Neut # (Auto) 13.13 H 12.56 H (1.8-7.7) 10^3/uL BMP 07/09/22 07/10/22 07/10/22 12:07 05:05 06:08 Sodium 137 Cancelled 135 L Potassium 3.9 Cancelled 4.3 Chloride 100 Cancelled 102 Carbon Dioxide 24 Cancelled 23 BUN 19 Cancelled 16 Creatinine 1.1 Cancelled 1.0 Glucose 112 Cancelled 123 H Calcium 9.6 Cancelled 9.4 Liver Function 07/10/22 Range/Units 06:08 Total Bilirubin 0.4 (0.15-1.2) mg/dL AST 9 (0-40) U/L ALT 12 (0-41) U/L Alkaline Phosphatase 88 (40-130) U/L Albumin 3.6 (3.5-5.2) g/dL Coags 07/09/22 07/09/22 07/10/22 12:07 12:07 05:05 ESR 36 H C-Reactive Protein 94.1 H Cancelled 07/10/22 06:08 ESR C-Reactive Protein 128.7 H Microbiology 07/09/22 12:07 Blood Culture - Preliminary Blood NEGATIVE TO DATE 07/09/22 12:07 Blood Culture - Preliminary Blood NEGATIVE TO DATE Cardiac Studies: No Data to Display
--- NOTE | 2022-07-10 15:08 | ANES.PROC ---
Anesthesia Procedures Procedure/Date: 07/10/22 Nerve Block ^: Nerve Block 1: Main Anesthesia: general anesthesia Time Out Performed: Yes Consent: requested by attending/covering physician, from patient, risks and benefits reviewed and patient agrees to proceed Nerve block location: axillary (R) Anesthesia monitors applied: pulse oximetry, EKG, BP cuff and oxygen Nerve block position: supine Anesthetic Used: ropivicaine 0.5% (30 ml) and with decadron ( 4 mg) Ultrasound used to: recognize landmarks and visualize and ID brachial plexus Nerve Stimulator Used?: No Interscalene/Femoral BLK: 2 stimuplex 22 g needle used for position and inplane approach, visualize local anesthetic spread and no vascular puncture identified Injection: neg aspiration of heme Patient Tolerated Procedure: well Complications: none
--- NOTE | 2022-07-10 15:25 | W.PM.OPSUD ---
Surgery/Procedure H&P Update DATE OF PROCEDURE: July 10, 2022 DATE H&P PERFORMED: 07/09/22 CHANGES TO PREVIOUS DOCUMENTATION: None. Patient was seen evaluated this morning. He has had no clinical improvement states is still continues to hurt. Reviewed the CT scan again although there is no discrete abscess per radiologist read I do feel as though there is a deep infection as patient's failed to respond to conservative treatment. We talked about his treatment options as far as nonoperative and operative intervention. At this point time my recommendation would be for a right hand irrigation and debridement with cultures. The risks with surgery include but not limited to make it better make it worse, worsening infection, wound complications, loss of finger, or loss of function of the hand. Understanding these risks he agrees to proceed with surgical intervention. All questions have been answered at this time. We will plan to proceed with surgical intervention today. PREOP DIAGNOSIS: Right hand infection PRIMARY INDICATION FOR PROCEDURE: Right hand infection failed conservative treatment PLANNED PROCEDURE: Operation Date: 07/10/22 16:10 Proposed Procedures p Incision & Drainage Upper Extremity(Right) - Landry Escalante DO
--- NOTE | 2022-07-10 16:36 | P.OP_ITS ---
Brief Operative Note Date of procedure: 07/10/22 Pre-op diagnosis: Right hand infection (cellulitis with abscess Post-op diagnosis: same (Right hand first webspace abscess with cellulitis) Procedure Done: Right hand irrigation and debridement 8 cm x 4 cm x 3 cm Surgeon: Landry Escalante Estimated blood loss (mL): 5 Complications: None Post-op Plan: Patient will return to the floor. Patient recovering well. Recommend continue ice and elevation overnight. Splint on and in place. Nonweightbearing right hand. Continue IV antibiotics. We will follow cultures. Patient may have regular diet. Appreciate internal medicine is primary. Will reevaluate tomorrow morning. 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
--- NOTE | 2022-07-10 16:38 | PM.PACU ---
PACU note Narrative: Patient recovering well in PACU. Received regional anesthesia unable to perform motor and sensory examination secondary to regional. Fingertips are warm and well-perfused. Brisk capillary refill less than 2 seconds. Volar splint on in place dressings clean dry and intact. Exam: awake (See narrative for detailed exam) Disposition: back to floor
--- NOTE | 2022-07-10 16:39 | PM.OP ---
Operative Report Date of procedure: July 10, 2022 Pre-op diagnosis: Preop Diagnosis Right hand infection Post-op diagnosis: Right hand first webspace abscess Procedure done: Right Hand first webspace abscess irrigation and debridement ( 8 cm x 4 cm x 3 cm) Pathology: Aerobic and anaerobic cultures of first webspace abscess to the right hand performed and sent for microbiology Surgeon: Landry Escalante DO Estimated blood loss: 5 21 minutes IV fluids: See anesthesia record Complications: None Findings: See operative report narrative Condition: stable Disposition: floor Brief History: Patient underwent a laceration of the right index finger. Patient subsequently presented to the hospital with concern for progressively worsening right index finger. No concerning findings for extensor tendon injury however noticeable erythema and lymphangitis spreading proximally. He has significant erythema over the right index finger and dorsal aspect of the hand this does radiate into the webspace and has significant tenderness to palpation. He was subsequently admitted by the hospitalist team started on empiric antibiotics underwent conservative treatment of elevation IV antibiotics and Toradol. Orthopedic surgery team was consulted for evaluation. We monitored him overnight to see his response to conservative treatment. Patient failed to respond to conservative treatment. CT scan was reviewed with no discrete abscess however due to his failure of current conservative treatment response we talked about treatment options as far as nonoperative and operative intervention. Ultimately I recommended surgical intervention as patient was not improving. Plan for surgery will be for right hand irrigation debridement. Through shared decision-making he agreed to proceed with surgical intervention. With surgery he understands his risks include but not limited to make a better make it worse, worsening infection, decreased range of motion function to the right hand. Potential loss of finger, repeat surgeries. Understanding his risks he agrees to proceed with surgical intervention. Procedure: Patient was seen evaluate in the preoperative holding area. Consent was reviewed with patient and correct extremity was then marked. He was seen evaluated by the anesthesia department once cleared for surgery was taken back to the operative suite and the right hand was placed on an armboard. All bony prominences well-padded patient was appropriately secured to the bed. A nonsterile tourniquet was applied to the right upper extremity. Patient been receiving appropriate antibiotics on the floor. Patient right upper extremity was then prepped and draped in sterile orthopedic fashion. Final timeout performed. Patient's right upper extremity was then elevated and the tourniquet was inflated to 250 mmHg. A standard curvilinear incision was made over the dorsal aspect of the right index finger starting at the PIP joint curving around the MP joint and taken proximally in the hand. This was roughly 8 cm in size. Full-thickness skin flaps were then created and care was made to not disrupt any of the dorsal cutaneous branch of the superficial radial nerve. We identified various dorsally. Immediately after breaking through subcutaneous tissue I then utilize hemostat and immediately encountered a significant abscess wrapping from the dorsal aspect of the right index finger into the first webspace. This abscess was then cultured for aerobic and anaerobic. I then bluntly spread and broke up the loculations of the abscess process of this area. Total abscess/incision I&D was 8 cm x 4 cm x 3 cm. I then debrided this wound bed and abscess with rongeur and sharp scalpel excision of skin subcutaneous tissue as well as fascia, this was done of all devitalized tissue no tendon or bone needed debridement. I had given this communicating volarly turned the hand over and then made a longitudinal incision centered over the A1 olivier of the right index finger. Sharp scalpel through skin and subcutaneous tissue this did not tunnel or track into the webspace abscess. I then evaluated the A1 olivier which was intact and then incised the A1 olivier and released this completely with Littler dissection scissors. Neurovascular bundles were protected during this part of the procedure. I then evaluated the synovial fluid of the flexor tendon sheath which was clean and pristine with no evidence of infection. At this point I thoroughly irrigated the first dorsal webspace wound bed with gravity cystoscopy tubing. Once wound bed was then thoroughly irrigated I then reinspected the complete decompression of abscess and debridement to healthy bleeding tissue. This point time tourniquet was then deflated and hemostasis was satisfactory with pressure and electrocautery bipolar. Given the extent of the abscess selected to place a Timothy drain this was then cut and placed from the dorsal incision to the palmar incision I then sequentially closed the incision with interrupted nylon suture with care to not suture and the [place] drain. Incision was then dressed with Xeroform 4 x 4's ABD Curlex soft roll and a volar splint. Patient was then awakened from anesthesia and taken to PACU in stable condition: Disposition patient taken to PACU in stable condition will be nonweightbearing to the right hand continue elevation and IV antibiotics. We will monitor cultures. Continue with IV Toradol. [place] drain left in place and will follow patient postoperatively on the floor. Patient understands and agrees with current plan. All questions answered.
--- NOTE | 2022-07-10 17:30 | ANE.PACU2 ---
Inpatient post-anesthesia follow up: Airway intact: Yes Vital signs: Temperature 99.1 F Pulse Rate 81 Respiratory Rate 16 Blood Pressure 155/74 Pulse Oximetry 93 Oxygen Delivery Me thod Room Air Oxygen Flow Rate Fraction of Inspir ed Oxygen Hydration adequate: Yes Nausea and vomiting: No Pain level: 1 Mental status: Baseline
[2022-07-10] MEDS: enoxaparin 40 mg/0.4 mL Syringe SUBCUT (21:53)
[2022-07-10] MEDS: trazodone 50 mg Tablet PO (21:53)
[2022-07-11] VITALS (11 sets, daily range): BP systolic 103–155; BP diastolic 61–77; PULSE 70–97; RESP 14–18; TEMP 36.6–37.3; O2SAT 93–100
[2022-07-11] MEDS: vancomycin 1,500 MG/300 ML PIGGYBACK 200 MG IV ×2 (00:07→12:55)
[2022-07-11] MEDS: ipratropium-albuterol 3 mL Neb INHALATION ×2 (00:39→20:19)
[2022-07-11] MEDS: piperacillin-tazobactam 3.375 GM in sodium chloride 0.9% (plus) 50 ML IV ×3 (02:39→20:44)
[2022-07-11] MEDS: acetaminophen 500 mg Tablet PO (04:54)
[2022-07-11 05:28] LABS: Basophils # 0.1 10^3/uL (0.0-0.1); Basophils % 0.4 %; Eosinophils % 0.1 %; Hematocrit 39.8 % (42.0-52.0); Hemoglobin 12.9 g/dL (11.7-16.6); Lymphocytes % 5.3 %; Mean Corpuscular HGB Conc 32.4 g/dL (30.0-36.0); Mean Corpuscular Hemoglobin 30.4 pg (28.0-34.0); Mean Corpuscular Volume 93.9 fl (80-94); Mean Platelet Volume 11.2 fL (7.4-10.4); Monocytes % 5.3 %; Neutrophils # 16.98 10^3/uL (1.8-7.7); Neutrophils % 87.7 %; Nucleated Red Blood Cells % 0 %; Platelet Count 296 10^3/cmm (130-400); Red Blood Count 4.24 10^6/uL (4.1-5.3); Red Cell Distribution Width 13.3 % (12.1-15.1); White Blood Count 19.4 10^3/uL (4.0-10.0)
[2022-07-11 05:50] LABS: Anion Gap 17.6 (5-19); Blood Urea Nitrogen 15 mg/dL (8-23); Calcium 9.8 mg/dL (8.5-10.5); Carbon Dioxide 20 mmol/L (22-29); Chloride 101 mmol/L (98-107); Glomerular Filtration Rate 61.8 mL/min (90-130); Glucose 168 mg/dL (65-115); Osmolality Calculated 283 mOsm/kg (285-295); Potassium 4.6 mmol/L (3.5-5.1); Sodium 134 mmol/L (136-145)
[2022-07-11] MEDS: ketorolac 30 mg/mL INJ IVP ×2 (06:22→11:56)
[2022-07-11 06:51] LABS: C Reactive Protein 118.7 mg/L (0.0-4.9)
--- NOTE | 2022-07-11 07:07 | P.PN_ITS ---
Subjective Subjective: Patient seen and examined this morning. He is postop day 1 of a right hand irrigation and debridements with cultures. Patient had a noticeable abscess within the first webspace of the right hand. Cultures were taken and are pending. He has a splint on in place. He did receive regional anesthesia and block is slowly beginning to wear off. His pain has been controlled at this time. Would recommend he continue with elevation ice, IV antibiotics and Toradol with plan for dressing takedown and reevaluation tomorrow. Patient understands agrees with current plan. All questions answered. Vitals/I&O/Wt Last Vital Signs Temp 99.1 F 07/11/22 04:00 Pulse 81 07/11/22 04:00 Resp 16 07/11/22 04:00 BP 155/74 07/11/22 04:00 Pulse Ox 93 07/11/22 04:00 O2 Del Method 07/11/22 04:00 07/10/22 07/11/22 07/11/22 22:59 06:59 14:59 Intake Total 1210 / 1610 420 / 2030 Output Total Balance 1200 / 1400 420 / 1820 Weight last 48 hrs Weight 214 lb Weight 214 lb Physical Exam Narrative: Examination limited secondary to splint. His fingertips are warm well perfused. He is starting to have jehovah's witness of sensation to the fingers but still some residual effect from regional anesthesia. Fingertips have brisk capillary refill less than 2 seconds. Dressings clean dry and intact. Patient does have ability to wiggle fingers and motion does appear to be slightly improved but limited secondary to splint Data : 07/11/22 04:55 07/11/22 04:55 Micro: Microbiology 07/09/22 12:07 Blood Culture - Preliminary Blood NEGATIVE TO DATE 07/09/22 12:07 Blood Culture - Preliminary Blood NEGATIVE TO DATE A&P Assessment and plan (1) Abscess of right hand: (2) Cellulitis: Plan Regular diet today?n.p.o. at midnight Intraoperative cultures pending A.m. labs reviewed Nonweightbearing right upper extremity Splint on in place Strict elevation right upper extremity Toradol IV antibiotics?per primary Internal medicine is primary Plan to evaluate patient with complete dressing takedown tomorrow and possible pull of Timothy drain. We will see clinically how he is improving. We will keep him n.p.o. just in case he needs a repeat irrigation and debridement secondary to reaccumulation or minimal improvement. We will trend a CRP tomorrow morning to see that this is downtrending. Patient understands and agrees with current plan. All questions answered. Attestations Medical Necessity Statement*: Patient had right hand abscess with cellulitis and lymphangitis requiring hospitalization for IV antibiotics and surgical intervention Coding Level of Care Code Acute Thread Drawer for [facility] Diagnoses Abscess of right hand L02.511 Cellulitis L03.90 Time Spent (min) 20
[2022-07-11] MEDS: pantoprazole DR 40 mg Tablet PO (08:09)
[2022-07-11] MEDS: gabapentin 400 mg Capsule 800 MG PO ×4 (08:09→20:49)
[2022-07-11] MEDS: montelukast sodium 10 mg Tablet PO (08:09)
[2022-07-11] MEDS: amlodipine 5 mg Tablet PO (08:09)
--- NOTE | 2022-07-11 08:20 | P.PN_ITS ---
Subjective Subjective: This morning patient is feeling slightly tender in his right arm first metatarsal carpal space Leukocytosis 19,000, afebrile I have asked patient that I will keep him here 1 more day because of leuk ocytosis His wounds will be evaluated by Dr. Escalante today Vitals/I&O/Wt Last Vital Signs Temp 98.1 F 07/11/22 07:41 Pulse 87 07/11/22 07:41 Resp 16 07/11/22 07:41 BP 132/66 07/11/22 07:41 Pulse Ox 100 07/11/22 07:41 O2 Del Method 07/11/22 07:41 07/10/22 07/11/22 07/11/22 22:59 06:59 14:59 Intake Total 1210 / 1610 420 / 2030 Output Total Balance 1200 / 1400 420 / 1820 Weight last 48 hrs Weight 97.069 kg Weight 97.069 kg Physical Exam Narrative: Patient is awake and alert Able to ambulate on his own Right arm covered in dressing Complaining of pain No signs of cyanosis of digits Awake and alert S1, S2 Currently on room air Pleasant and cooperative Data : 07/11/22 04:55 07/11/22 04:55 Micro: Microbiology 07/09/22 12:07 Blood Culture - Preliminary Blood NEGATIVE TO DATE 07/09/22 12:07 Blood Culture - Preliminary Blood NEGATIVE TO DATE A&P Assessment and plan (1) Abscess of right hand: (2) Cellulitis: Plan Worsening leukocytosis Afebrile Cultures from the OR pending Continue IV antibiotics Patient complaining of pain in his hand today He might need further exploration by Dr. Escalante tomorrow We will keep him n.p.o. after midnight Check CRP, ferritin inflammatory markers Continue antibiotics Hold DVT prophylaxis for tonight Currently patient is on regular diet For pain he is getting opioids and anti-inflammatory medications Attestations Medical Necessity Statement*: Continue medical management Time Spent in Patient Care: 30 Coding Level of Care Code Acute Heel Pricker for Iraisg Fwsanna Diagnoses Abscess of right hand L02.511 Cellulitis L03.90
[2022-07-11 09:34] LABS: Ferritin 442 ng/mL (30-400)
[2022-07-11 09:38] LABS: Vancomycin Trough 16.7 ug/mL (10-15)
[2022-07-11] MEDS: oxyCODONE 5 mg IR Tab/Cap PO ×2 (09:58→17:40)
[2022-07-11 10:11] LABS: D Dimer 0.92 ug/mIFEU (0-0.59)
--- NOTE | 2022-07-11 10:56 | PC.CHAP ---
Pastoral Care Encounter/Spiritual Assessment Type of Contact [] Declined operations manager assistant visit [] Patient/Family/Request visit [] Outpatient visit [] Follow-up visit [] Physician referral [] Code/Alert [] Routine visit [] Staff referral [] Actively dying [] Patient sleeping [] Family support [] [] Out of room [] Palliative care [] [] Receiving care in room [] Pre-surgical visit [] Trauma [] Long length of stay [] ICU visit [x] Other: Isolation Relational/Emotional Strength [] Patient feels connected with others/family/visitors/staff [] Distress [] Loneliness/isolation [] Abandonment Spirituality of Patient [] Person of Cammie [] Attends Hinduism of their Cammie [] Believes in Prayer [] Reads Bible or Buddhism materials [] There are Spiritual issues to be addressed Dental Assistant Interventions [] Prayer [] Active listening [] Non-anxious presence [] Spiritual/emotional support [] Crisis/trauma care [] Spiritual counseling [] Bereavement support [] Provided bereavement packet [] Provided Bible/devotional materials [] Provided toy/stuffed animal, coloring book to patient or family member [] Provided Communion [] Anointing/Secretary [] Salvation [] Completed spiritual assessment [] Other: Impact on Illness or Injury [] Angry [] Fearful [] Anxious [] Often cries [] Exhaustion [] Unable to work [] Unable to attend restorationism [] Unable to walk/stand [] Unable to read [] Unable to drive [] Unable to eat/drink [] Unable to sleep [] Unable to be with family [] Patient intubated [] Other: Summary Isolation Time spent with patient 10 mins
[2022-07-11] MEDS: trazodone 50 mg Tablet PO (20:49)
[2022-07-12] VITALS (7 sets, daily range): BP systolic 103–128; BP diastolic 63–69; PULSE 59–73; RESP 16–18; TEMP 36.5–36.6; O2SAT 97–100
[2022-07-12] MEDS: oxyCODONE 5 mg IR Tab/Cap PO ×2 (00:07→08:53)
[2022-07-12] MEDS: vancomycin 1,500 MG/300 ML PIGGYBACK 200 MG IV (00:08)
[2022-07-12 02:52] LABS: Basophils # 0.1 10^3/uL (0.0-0.1); Eosinophils # 0.5 10^3/uL (0.0-0.8); Eosinophils % 3.5 %; Hematocrit 39.5 % (42.0-52.0); Hemoglobin 12.2 g/dL (11.7-16.6); Lymphocytes # 2.6 10^3/uL (0.8-4.8); Lymphocytes % 20.2 %; Mean Corpuscular HGB Conc 30.9 g/dL (30.0-36.0); Mean Corpuscular Hemoglobin 29.6 pg (28.0-34.0); Mean Corpuscular Volume 95.9 fl (80-94); Mean Platelet Volume 11.3 fL (7.4-10.4); Monocytes # 0.8 10^3/uL (0.2-0.9); Monocytes % 6.5 %; Neutrophils # 8.64 10^3/uL (1.8-7.7); Neutrophils % 67.1 %; Nucleated Red Blood Cells % 0 %; Platelet Count 268 10^3/cmm (130-400); Red Blood Count 4.12 10^6/uL (4.1-5.3); Red Cell Distribution Width 13.3 % (12.1-15.1); White Blood Count 12.9 10^3/uL (4.0-10.0)
[2022-07-12 03:11] LABS: Anion Gap 16.3 (5-19); Blood Urea Nitrogen 20 mg/dL (8-23); C Reactive Protein 61.3 mg/L (0.0-4.9); Calcium 9.4 mg/dL (8.5-10.5); Carbon Dioxide 23 mmol/L (22-29); Chloride 104 mmol/L (98-107); Glomerular Filtration Rate 76.2 mL/min (90-130); Glucose 124 mg/dL (65-115); Osmolality Calculated 292 mOsm/kg (285-295); Potassium 4.3 mmol/L (3.5-5.1); Sodium 139 mmol/L (136-145)
[2022-07-12] MEDS: piperacillin-tazobactam 3.375 GM in sodium chloride 0.9% (plus) 50 ML IV (03:45)
--- NOTE | 2022-07-12 07:34 | P.PN_ITS ---
Subjective Subjective: Patient seen and examined in the morning. His dressing subsequently taken down. Patient states his right hand feels significantly better. His dressings taken down he has wrinkles over his skin his erythema has significantly improved and resolved there is no signs of reaccumulation decreased tenderness to palpation. This point time he is improved with with intervention and no further surgical intervention required at this time. Patient stable for discharge from orthopedic standpoint. Vitals/I&O/Wt Last Vital Signs Temp 97.8 F 07/12/22 03:34 Pulse 63 07/12/22 03:34 Resp 17 07/12/22 03:34 BP 115/69 07/12/22 03:34 Pulse Ox 100 07/12/22 03:34 O2 Del Method 07/12/22 03:34 07/11/22 07/12/22 07/12/22 22:59 06:59 14:59 Intake Total 910 / 1450 470 / 1920 Output Total 600 / 600 Balance 910 / 1450 -130 / 1320 Physical Exam Narrative: Examination of the right hand splint on in place and dressing subsequently taken down. Patient has Timothy drain in place. No expressible purulence or drainage. Significant decrease in swelling patient now has wrinkles over his whole hand. Mild tenderness palpation over surgical incision site. However he does have some improvement in range of motion and minimal pain with range of motion. Sensation intact to light touch distally. Fingertips warm well perfused. Data : 07/12/22 01:59 07/12/22 01:59 Micro: Microbiology 07/10/22 16:12 Gram Stain - Final Hand - Right Anaerobic Culture - Preliminary Abscess Culture - Preliminary A&P Assessment and plan (1) Abscess of right hand: (2) Cellulitis: Plan Patient's been n.p.o. since midnight, may have diet today IV antibiotics per primary team Intraoperative culture showing strep pyogenous, internal medicine on board and will discharge on p.o. antibiotics Continue elevation and ice Patient's dressing taken down and redressed this morning Patient stable for discharge from orthopedic standpoint no further surgical intervention required at this time. Orthopedic surgery team will sign off patient at this time follow peripherally. Appreciate allowing me to partake in the care of this patient. Patient will follow-up with myself Dr. Escalante in office in 2 weeks for a recheck of right hand and suture removal. Patient given appropriate discharge instructions and will see me in office. Patient understands agrees with current plan. All questions answered. Attestations Medical Necessity Statement*: Patient had a right hand abscess and underwent surgical intervention and requiring IV antibiotics. Coding Level of Care Code Acute Human Intelligence for Adalgisa Mackenzie Diagnoses Abscess of right hand L02.511 Cellulitis L03.90 Time Spent (min) 20
--- NOTE | 2022-07-12 08:42 | P.DS_ITS ---
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 Escalante was consulted who took him to the OR for right hand irrigation and debridement with cultures 8 x 4 x 3 cm, he has a splint on his ri ght hand, he did tolerate the procedure very well, he has been asked to keep his arm elevated use ice and use 2 weeks of doxycycline and Augmentin and follow-up with Dr. Escalante within 2 weeks. Please note cultures are pending which was sent from the OR. Physical Exam Narrative: Awake and alert No signs of right hand purulent drainage Right hand is showing signs of healing with good skin wrinkling without any edema Patient is hemodynamically stable Currently on room air Nonfocal neuro exam S1, S2 Abdomen is soft Discharge Data Studies Completed and Pending Completed Studies During Hospitalization Category Date Time Status CT hand RT w con [id number] Stat Cat Scan 07/09/22 15:42 Completed Pending at discharge Category Date Time Status Abscess Culture and Gram Stain Routine Lab 07/10/22 16:12 Results Anaerobic Culture Routine Lab 07/10/22 16:12 Results Blood Culture Stat Lab 07/09/22 12:07 Results Radiology Impressions Hand CT 07/09/22 15:42 IMPRESSION: 1. No foreign body or fracture. 2. Large amount of cellulitis and phlegmonous changes, most significantly centered around the second metacarpal and base of the thumb. At this time there is no well formed enhancing abscess but there is a large amount soft tissue inflammation and phlegmon within the thenar eminence. Laboratory Results WBC 12.9 10^3/uL (4.0-10.0) H 07/12/22 01:59 RBC 4.12 10^6/uL (4.1-5.3) 07/12/22 01:59 Hgb 12.2 g/dL (11.7-16.6) 07/12/22 01:59 Hct 39.5 % (42.0-52.0) L 07/12/22 01:59 MCV 95.9 fl (80-94) H 07/12/22 01:59 MCH 29.6 pg (28.0-34.0) 07/12/22 01:59 MCHC 30.9 g/dL (30.0-36.0) 07/12/22 01:59 RDW 13.3 % (12.1-15.1) 07/12/22 01:59 Plt Count 268 10^3/cmm (130-400) 07/12/22 01:59 MPV 11.3 fL (7.4-10.4) H 07/12/22 01:59 Neut % (Auto) 67.1 % 07/12/22 01:59 Lymph % (Auto) 20.2 % 07/12/22 01:59 [place] % (Auto) 6.5 % 07/12/22 01:59 Eos % (Auto) 3.5 % 07/12/22 01:59 Baso % (Auto) 1.0 % 07/12/22 01:59 Neut # (Auto) 8.64 10^3/uL (1.8-7.7) H 07/12/22 01:59 Lymph # (Auto) 2.6 10^3/uL (0.8-4.8) 07/12/22 01:59 [place] # (Auto) 0.8 10^3/uL (0.2-0.9) 07/12/22 01:59 Eos # (Auto) 0.5 10^3/uL (0.0-0.8) 07/12/22 01:59 Baso # (Auto) 0.1 10^3/uL (0.0-0.1) 07/12/22 01:59 Nucleated RBC % (auto) 0 % 07/12/22 01:59 Nucleated RBCs # 0.0 /100WBC 07/12/22 01:59 ESR 36 mm/hr (0-10) H 07/09/22 12:07 D-Dimer 0.92 ug/mIFEU (0-0.59) H 07/11/22 08:52 Sodium 139 mmol/L (136-145) 07/12/22 01:59 Potassium 4.3 mmol/L (3.5-5.1) 07/12/22 01:59 Chloride 104 mmol/L (98-107) 07/12/22 01:59 Carbon Dioxide 23 mmol/L (22-29) 07/12/22 01:59 Anion Gap 16.3 (5-19) 07/12/22 01:59 BUN 20 mg/dL (8-23) 07/12/22 01:59 Creatinine 1.0 mg/dL (0.7-1.2) 07/12/22 01:59 GFR Calculation 76.2 mL/min (90-130) L 07/12/22 01:59 Glucose 124 mg/dL (65-115) H 07/12/22 01:59 Calculated Osmolality 292 mOsm/kg (285-295) 07/12/22 01:59 Calcium 9.4 mg/dL (8.5-10.5) 07/12/22 01:59 Ferritin 442 ng/mL (30-400) H 07/11/22 08:52 Total Bilirubin 0.4 mg/dL (0.15-1.2) 07/10/22 06:08 AST 9 U/L (0-40) 07/10/22 06:08 ALT 12 U/L (0-41) 07/10/22 06:08 Alkaline Phosphatase 88 U/L (40-130) 07/10/22 06:08 C-Reactive Protein 61.3 mg/L (0.0-4.9) H 07/12/22 01:59 Total Protein 6.6 g/dL (6.6-8.7) 07/10/22 06:08 Albumin 3.6 g/dL (3.5-5.2) 07/10/22 06:08 Globulin 3.0 g/dL (1.3-4.6) 07/10/22 06:08 Procalcitonin 0.10 ng/mL (0-0.5) 07/09/22 12:07 Vancomycin Trough 16.7 ug/mL (10-15) H 07/11/22 08:52 Vitals Last Vital Signs Temp 97.7 F 07/12/22 07:49 Pulse 59 L 07/12/22 07:49 Resp 16 07/12/22 07:49 BP 103/63 07/12/22 07:49 Pulse Ox 97 07/12/22 07:49 O2 Del Method 07/12/22 07:49 Discharge Plan Discharge Patient Disposition: Home Condition: Stable Prescriptions: New oxycodone-acetaminophen 5-325 mg tablet 1 tab PO Q8H PRN (Reason: pain) Qty: 20 0RF amoxicillin-pot clavulanate 875-125 mg tablet 1 tab PO BID Qty: 28 0RF doxycycline hyclate 100 mg tablet 100 mg PO BID 14 Days Qty: 28 0RF sennosides-docusate sodium [Senna-S] 8.6-50 mg tablet 1 tab-cap PO DAILY Qty: 20 0RF Continued montelukast 10 mg tablet 10 mg PO DAILY Qty: 30 10RF albuterol sulfate [Ventolin HFA] 90 mcg/actuation HFA aerosol inhaler 2 puff inhalation Q6H PRN (Reason: shortness of breath or wheezing) Qty: 8.5 5RF cyclobenzaprine 10 mg tablet 10 mg PO TID PRN (Reason: Muscle Pain) Advair Diskus 250-50 mcg/dose blister with device 2 inh inhalation BID trazodone 50 mg tablet 50 mg PO BEDTIME gabapentin 800 mg tablet 800 mg PO QID omeprazole 20 mg capsule,delayed release(DR/EC) 20 mg PO DAILY lisinopril 5 mg tablet 5 mg PO DAILY Discharge Orders: Discharge Order (Routine); Ordered 07/12/22 Ordered By: Shonna Baumann Referrals: Tyler Garcia MD [Primary Care Provider] - Landry Escalante DO [Physician] - 2 weeks Discharge Diet: Cardiac Discharge Activity: Increase activity as tolerated Patient Instructions: Opioid Safety Activity Restrictions/Additional Instructions: Please finish 2 weeks antibiotic regimen You will follow-up with your surgeon as follow-up for your wound care Discharge Attestations Time Spent in Discharge Care*: less than 30 min Quality Metrics Clinical Quality Measures [ No reported AMI, CVA or VTE this stay] Coding Level of Care Code Acute Chg FW DC note Diagnoses Abscess of right hand L02.511 Cellulitis L03.90
[2022-07-12] MEDS: pantoprazole DR 40 mg Tablet PO (08:45)
[2022-07-12] MEDS: montelukast sodium 10 mg Tablet PO (08:45)
[2022-07-12] MEDS: amlodipine 5 mg Tablet PO (08:45)
[2022-07-12] MEDS: gabapentin 400 mg Capsule 800 MG PO (08:45)
== END 2022-07-12 10:42 | disposition home or self-care (01) | DRG 580 ==
LOC: ER 16:43 → MEDSURG 17:13
PROVIDERS: Student in an Organized Health Care Education/Training Program; Admitting Provider Student in an Organized Health Care Education/Training Program; Emergency Provider Family Medicine; PCP Family Medicine Adult Medicine; Visit Provider Internal Medicine
PROC: 0JBJ0ZZ Excision of Right Hand Subcutaneous Tissue and Fascia, Open Approach (ICD-10-PCS; principal; 2022-07-10 16:00)
DX: L03.113 Cellulitis of right upper limb (principal); L02.511 Cutaneous abscess of right hand; G47.31 Primary central sleep apnea; K21.9 Gastro-esophageal reflux disease without esophagitis; J44.9 Chronic obstructive pulmonary disease, unspecified; G62.89 Other specified polyneuropathies; E78.5 Hyperlipidemia, unspecified; I10 Essential (primary) hypertension; F17.220 Nicotine dependence, chewing tobacco, uncomplicated; Z23 Encounter for immunization; E66.01 Morbid (severe) obesity due to excess calories; Z68.32 Body mass index [BMI] 32.0-32.9, adult
CPT/HCPCS: 36415; 73201; 80048; 80053; 80202; 82728; 84145; 85025; 85378; 85651; 86140; 87040; 87070; 87075; 87186; 87205; 90471; 90715; 94640; 96365; 96367; 96372; 96375; 99285; G0378; J0696; J1100; J1650; J1885; J2270; J2543; J2704; J2795; J3010; J3370; J3490; Q9967

== ENCOUNTER 2024-04-12 14:43 | Outpatient (CLI) | payer MEDICAID, SELFPAY ==
--- NOTE | 2024-04-12 14:30 | CT_ITS ---
WS: [id number] LDCT LUNG CANCER SCREENING TECHNIQUE: Noncontrast CT of the chest with coronal and sagittal reformatted images. CLINICAL INFORMATION: smoker COMPARISON: None. DLP: 85.52 mGy.cm DIvol: Mean CTDIvol: 1.90 (mGy) All CT scans at [facility] use at least one of these dose optimization techniques: automat ed exposure control; mA and/or kV adjustment per patient size (includes targeted exams where dose is matched to clinical indication); or iterative reconstruction. FINDINGS: Small nodule LEFT upper lobe measuring 3 mm. Normal caliber thoracic aorta. Mild aortic calcification. No mediastinal or hilar lymphadenopathy. No axillary lymphadenopathy. Small esophageal hiatal hernia. 1.6 cm LEFT adrenal adenoma. 1.0 cm RIGHT adrenal adenoma. Indetermin ate partially evaluated LEFT renal cortical lesion measuring 1.2 cm. Recommend further evaluation wit h ultrasound and/or contrast-enhanced CT abdomen pelvis. . CT/CT lung screening [id number] IMPRESSION: Partially visualized indeterminate LEFT renal lesion measuring 1.2 cm posterior upper pole. Recommend further evaluation with ultrasound and/or contrast-enhan alejandrina CT abdomen pelvis. LUNG-RADS: 2S-Benign Appearance or Behavior with Significant Findings FOLLOW UP: 12 Month: Continue annual screening with LDCT
== END 2024-04-12 14:44 | disposition home or self-care (01) ==
PROVIDERS: PCP Family Medicine Adult Medicine; Visit Provider Family Medicine Adult Medicine
DX: Z12.2 Encounter for screening for malignant neoplasm of respiratory organs (principal); J43.1 Panlobular emphysema; F17.200 Nicotine dependence, unspecified, uncomplicated; D35.02 Benign neoplasm of left adrenal gland
CPT/HCPCS: 71271

== ENCOUNTER 2024-12-02 15:57 | Outpatient (CLI) | payer MEDICAID, SELFPAY ==
--- NOTE | 2024-12-02 16:00 | US_ITS ---
WS: [id number] RENAL ULTRASOUND HISTORY: lesion L kidney on LDCT 05/01 COMPARISON: CT lung screening 04/12/2024 TECHNIQUE: 2-D and color Doppler imaging of the kidney submitted. Right kidney: 10.8 cm x 4.1 cm x 3.9 cm. Cortex: 1.0 cm Normal echogenicity with no hydronephrosis or mass. Left kidney: 8.5 cm x 5.8 cm x 6.3 cm. Cortex: 1.1 cm Normal size kidney. Exophytic hypoechoic mass from the superior kidney measures 1.5 x 1.4 x 1.5 cm. This corresponds to the mass seen on the CT from 04/12/2024. Due to the position of this mass and body habitus cannot be further characterized. This mass was not present on a CT from 2014. Aorta: Normal. Urinary Bladder: Minimally distended bladder. Prostate gland is enlarged and heterogeneous. US/US renal BI* [id number] IMPRESSION: 1. Indeterminate exophytic mass from the superior pole LEFT kidney measures 1. 5 x 1.4 x 1.5 cm. Complex cyst versus small solid renal mass. Renal mass was no t present in 2015. Recommend additional evaluation. CT or MRI with and without contrast as renal mass protocol may be obtained. 2. No hydronephrosis. 3. Prostate enlargement and heterogeneity.
== END 2024-12-02 15:58 | disposition home or self-care (01) ==
PROVIDERS: PCP Family Medicine; Visit Provider Family Medicine
DX: N28.89 Other specified disorders of kidney and ureter (principal); N40.0 Benign prostatic hyperplasia without lower urinary tract symptoms
CPT/HCPCS: 76770

== ENCOUNTER → 2024-12-06 11:44 | Outpatient (BNVA) | payer MEDICAID, SELFPAY | PROVIDERS: PCP Family Medicine; Referring Provider Family Medicine; Visit Provider Student in an Organized Health Care Education/Training Program | DX: Z12.11 Encounter for screening for malignant neoplasm of colon (principal); R12 Heartburn | CPT/HCPCS: 80053; 80061; 82607; 83036; 84443; 85025; 99204 ==

== ENCOUNTER 2024-12-17 14:45 | Outpatient (CLI) | payer MEDICAID, SELFPAY ==
--- NOTE | 2024-12-17 14:45 | CTR_ITS ---
PROCEDURE INFORMATION: Exam: CT Abdomen And Pelvis Without And With Contrast Exam date and time: 12/17/2024 3:10 PM Age: 64 years old Clinical indication: Abnormal findings; Abnormal radiologic finding of the abdomen; Radiologic exam and body structure: CT lung screen; Prior surgery; Surgery date: 6+ months; Surgery type: Lumbar; Additional info: Left kidney mass on ldct and US TECHNIQUE: Imaging protocol: Computed tomography of the abdomen and pelvis without and with contrast. 3D rendering (Not supervised by radiologist): MIP and/or 3D reconstructed images were created by the technologist. Radiation optimization: All CT scans at this facility use at least one of these dose optimization techniques: automated exposure control; mA and/or kV adjustment per patient size (includes targeted exams where dose is matched to clinical indication); or iterative reconstruction. Contrast material: OMNI 350; Contrast volume: 100 ml; Contrast route: INTRAVENOUS (IV); COMPARISON: US renal BI* [id number] 12/02/2024 4:01 PM RADIATION DOSE METRICS: Total DLP (mGy-cm): 2375.93 FINDINGS: Lungs: There is a 3 mm sized noncalcified nodule posterior left lower lobe image number 10 of series 6. For patients at low risk (minimal or absent history of smoking and of other known risk factors), no routine follow-up is indicated. For patients at high risk (history of smoking or of other known risk factors), consider optional CT Chest at 12 months. (Reference: Therese) Diaphragm: There is a small hiatal hernia. Liver: There is no focal abnormality within the liver. Gallbladder and biliary ducts: The gallbladder is normal. There is no common bile duct dilation. Pancreas: The pancreas is normal. Spleen: The spleen is normal. Adrenal glands: There is a 1.5 cm sized right adrenal nodule. This measures 6 Hounsfield units on the noncontrast study is consistent with benign adrenal adenoma. There is also a 1 point 6 cm sized nodule of the left adrenal gland with density on the noncontrast examination of less than 0 also consistent with benign adrenal adenoma. Kidneys and ureters: There is a tiny 4 mm sized hypodensity upper pole right kidney most likely benign simple cyst but too small to definitively characterize by CT scanning. No specific follow-up is necessary. There is a 10 x 12 mm exophytic nonenhancing mass arising from the posterior aspect of the mid right kidney. The density on nonenhanced CT scan is 28.6 Hounsfield units. There is no wall thickening or visible septation. This is a benign Bosniak 2 lesion requiring no further follow-up. There is a 1.7 cm sized exophytic nonenhancing mass arising from the posterior aspect of the upper pole of the left kidney. There is no wall thickening or visible septation. This measures 16 Hounsfield units on noncontrast examination and is consistent with benign Bosniak 1 type lesion requiring no further follow-up. There is a tiny cortical cyst in the lower pole of the left kidney too small to definitively characterize by CT scanning requiring no further follow-up. There is no evidence of hydronephrosis. There is no evidence of renal or ureteral calcifications. Stomach and bowel: There is no evidence of colitis/diverticulitis. There is no evidence of intestinal obstruction. In the right lower quadrant adjacent to the cecum there is a partly septated tubular cystic mass measuring 5.8 x 2.3 x 2.7 cm. This has a relatively thin enhancing wall with a single septation and curvilinear calcifications at its base. This lesion could represent mucocele of the appendix although differential considerations would include Meckel's diverticulum or other cystic mass. This finding could be due to a mucinous adenocarcinoma. Surgical evaluation is recommended. Appendix: Not identified Intraperitoneal space: There is no evidence of free intraperitoneal fluid. There is no evidence of free intraperitoneal fluid. Vasculature: The aorta is normal. A retroaortic left renal vein is incidentally noted. Lymph nodes: There is no evidence of lymphadenopathy. Urinary bladder: Unremarkable as visualized. Reproductive: The prostate demonstrates moderate nonspecific enlargement. The seminal vesicles are normal. The prostate gland demonstrates nonspecific parenchymal calcifications. Bones/joints: The lumbar spine demonstrates moderate degenerative changes at multiple levels. Soft tissues: There are bilateral inguinal hernias containing only fat. CT/CT abdomen pelvis wo/w [id number] IMPRESSION: 1. Small bilateral benign-appearing renal cysts requiring no further follow-up. 2. Bilateral benign adrenal adenomas 3. Cystic right lower quadrant mass abutting the cecum worrisome for malignancy. Surgical consultation advised COMMENTS: 1. THIS REPORT CONTAINS FINDINGS THAT MAY BE CRITICAL TO PATIENT CARE. The findings were verbally communicated via telephone conference with ZAHRA Aden at 5:50 PM CDT on 12/17/2024. The findings were acknowledged and understood. 2. Consistent with the [employer]'s Incidental Findings Committee white paper (J Am Rob Radiol 2017): Any incidental adrenal lesion less than 1 cm is likely benign. No follow-up imaging is recommended for these lesions per consensus recommendations based on imaging criteria. Further lab evaluation could be pursued if warranted based on clinical findings. 3. Consistent with the [employer]'s Incidental Findings Committee white paper (J Am Rob Radiol 2017): For any incidental adrenal lesion greater than or equal to 1 cm but less than or equal to 4 cm classified in this report as benign, likely benign, or containing fat (including classification as an adenoma or myelolipoma), no follow-up imaging is recommended per consensus recommendations based on imaging criteria. Further lab evaluation could be pursued if warranted based on clinical findings. 4. Consistent with the [employer]'s Incidental Findings Committee white paper (J Am Rob Radiol 2018): Any incidental renal lesion less than 1 cm or classified as too small to characterize, or any incidental cystic renal lesion characterized as simple-appearing, is likely benign. No follow-up imaging is recommended for these lesions per consensus recommendations based on imaging criteria. REFERENCES: Therese H, et al. Guidelines for Management of Incidental Pulmonary Nodules Detected on CT Images: From the [employer] 2017. Radiology. 2017;284(1):228-243.
[2024-12-17] MEDS: iohexol 350 mg/mL 500 mL Btl (per mL) IV (14:58)
== END 2024-12-17 14:46 | disposition home or self-care (01) ==
LOC: RAD 14:47
PROVIDERS: PCP Family Medicine; Visit Provider Family Medicine
DX: N28.89 Other specified disorders of kidney and ureter (principal); R91.1 Solitary pulmonary nodule; K44.9 Diaphragmatic hernia without obstruction or gangrene; E27.8 Other specified disorders of adrenal gland; R93.5 Abnormal findings on diagnostic imaging of other abdominal regions, including retroperitoneum; N40.0 Benign prostatic hyperplasia without lower urinary tract symptoms; M47.896 Other spondylosis, lumbar region; K40.20 Bilateral inguinal hernia, without obstruction or gangrene, not specified as recurrent
CPT/HCPCS: 74178

== ENCOUNTER 2024-12-21 13:14 | Day surgery (SDC) | payer MEDICAID, SELFPAY ==
[2024-12-21 13:27] VITALS: BP 154/89; PULSE 96; RESP 18; TEMP 36.7; O2SAT 96; BMI 31.6
[2024-12-21] MEDS: sodium chloride 0.9% 1,000 ML 30 ML IV (13:38)
--- NOTE | 2024-12-21 13:40 | P.ANESASSM_ITS ---
Pre-Anesthetic Assessment Height/Weight: Height 1.73 m Weight 94.347 kg Temp Pulse Resp BP Pulse Ox O2 Del Method 98.1 F 96 18 154/89 96 Room Air 12/21/24 13:27 12/21/24 13:27 12/21/24 13:27 12/21/24 13:27 12/21/24 13:27 12/21/24 13:27 Operation Date: 12/21/24 14:00 Proposed Procedures p EGD [id number] G0121 Z12.11 R12(Not Applicable) - Kiran Perez MD s Colonoscopy(Not Applicable) - Kiran Perez MD Last intake: Intake Last Liquid Date 12/20/24 Last Liquid Time 23:00 Last Solid Date 12/19/24 Last Solid Time 22:30 Social No alcohol and No tobacco Exam alert, oriented x 3 and regular rate & rhythm Late expiratory wheezes Airway Submandibular: within normal limits Cervical ROM: within normal limits Mallampati: Class II Pulmonary Chronic Obstructive Pulmonary Disease CV/HEM Hypertension Metabolic Hyperlipidemia Anesthetic Plan ASA status: 3 Anesthesia: MAC Medications/Allergies Home Medications ?Medication ?Instructions ?Recorded ?Confirmed ?Last Taken ?Type trazodone 50 mg tablet See Rx Instructions .Route 0 05/07/23 12/15/24 12/15/24 Rx .COMPLEX #30 tabs gabapentin 800 mg tablet 800 mg PO TID chronic pain # 90 tabs 07/20/24 12/15/24 12/21/24 Rx baclofen 20 mg tablet See Rx Instructions .Route 1 10/17/23 12/15/24 12/19/24 Rx .COMPLEX #60 tabs omeprazole 40 mg capsule,delayed See Rx Instructions . Route 09/10/24 12/15/24 12/20/24 Rx release .COMPLEX GERD #30 caps fluticasone propionate 50 See Rx Instructions .Route 0 10/08/24 12/15/24 12/15/24 Rx mcg/actuation nasal .COMPLEX #16 grams spray,suspension montelukast 10 mg tablet See Rx Instructions .Route 0 10/08/24 12/15/24 12/20/24 Rx .COMPLEX #30 tabs albuterol sulfate 90 mcg/actuation See Rx Instructions .Route 11/26/24 12/15/24 12/21/24 Rx aerosol inhaler (Ventolin HFA) .COMPLEX #8.5 grams diphenhydramine HCl 25 mg capsule See Rx Instructions .Route 11/26/24 12/15/24 12/19/24 Rx (Allergy Relief (diphenhydramine)) .COMPLEX #30 ea fluticasone 250 mcg-salmeterol 50 See Rx Instructions .Route 11/26/24 12/15/24 12/21/24 Rx mcg/dose blistr powdr for .COMPLEX #60 ea inhalation (Advair Diskus) losartan 25 mg tablet 25 mg PO DAILY #30 tabs 11/0712/15/24 12/20/24 Rx rosuvastatin 10 mg tablet 10 mg PO DAILY cholesterol # 90 tabs 12/07/24 12/15/24 12/20/24 Rx Allergies Allergy/AdvReac Type Severity Reaction Status Date / Time peppermint Allergy Unknown Unknown Verified 12/06/24 11:52 Current Medications Generic Name Dose Route Start Last Admin Trade Name Freq PRN Reason Stop Dose Admin Sodium Chloride 1,000 mls @ 30 mls/hr 12/21/24 07:15 12/21/24 13:38 Sodium Chloride 0.9% IV 12/22/24 07:14 30 mls/hr .Q24H AYALA Administration PFSH Anesthesia Medical History (Updated 12/20/24 @ 16:10 by Skye Miranda MD) Mass of cecum on CT 4.25 Screening for lung cancer LDCT 8.5.24--repeat 1 yr Fasting hyperglycemia Colon polyps Smoker Chronic bronchitis with acute exacerbation Allergic rhinitis due to allergen Familial peripheral neuropathy Obesity (BMI 30.0-34.9) Hyperlipidemia Hypertension Chronic GERD COPD (chronic obstructive pulmonary disease) Hearing loss Central sleep apnea has CPAP Surgical History Hx of colonoscopy with polypectomy 2015; tubular adenoma History of back surgery Family History Father CAD (coronary artery disease) Other Cancer Cardiomyopathy Social History Smoking and tobacco/nicotine status: current every day tobacco/nicotine user cigarettes Packs smoked per day: 0.5 and smokeless tobacco Smokeless tobacco user: chewing tobacco Smokeless tobacco details: 4 cans a weeks Alcohol intake: current Alcohol intake frequency: holidays/special occasions only Substance/Drug Use: never Household members: spouse Marital status: Number of children: 2 Highest education level completed: High School Graduate Current occupational status: disabled 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
--- NOTE | 2024-12-21 13:44 | W.PM.OPSUD ---
Surgery/Procedure H&P Update DATE OF PROCEDURE: December 21, 2024 DATE H&P PERFORMED: 12/06/24 H&P UPDATE INFORMATION: I have reviewed H&P completed within last 30 days, I have examined patient prior to procedure and No changes to prior documentation PLANNED PROCEDURE: Operation Date: 12/21/24 14:00 Proposed Procedures p EGD [id number] G0121 Z12.11 R12(Not Applicable) - Kiran Perez MD s Colonoscopy(Not Applicable) - Kiran Perez MD
--- NOTE | 2024-12-21 14:19 | ANE.PACU2 ---
Inpatient post-anesthesia follow up: Airway intact: Yes Vital signs: Temperature 98.1 F Pulse Rate 96 Respiratory Rate 18 Blood Pressure 154/89 Pulse Oximetry 96 Oxygen Delivery Me thod Room Air Oxygen Flow Rate Fraction of Inspir ed Oxygen Hydration adequate: Yes Nausea and vomiting: No Pain level: 1 Mental status: Baseline
[2024-12-21 14:29] VITALS: BP 93/55; PULSE 72; RESP 18; TEMP 36.6; O2SAT 92
[2024-12-21 14:38] VITALS: BP 121/88; PULSE 81; RESP 16; O2SAT 94
== END 2024-12-21 14:48 | disposition home or self-care (01) ==
PROVIDERS: PCP Family Medicine; Visit Provider Student in an Organized Health Care Education/Training Program
PROC: 0DJ08ZZ Inspection of Upper Intestinal Tract, Via Natural or Artificial Opening Endoscopic (ICD-10-PCS; principal; 2024-12-21 14:00)
PROC: 0DJD8ZZ Inspection of Lower Intestinal Tract, Via Natural or Artificial Opening Endoscopic (ICD-10-PCS; CPT 45378; 2024-12-21 14:00)
DX: Z12.11 Encounter for screening for malignant neoplasm of colon (principal); D12.5 Benign neoplasm of sigmoid colon; K57.30 Diverticulosis of large intestine without perforation or abscess without bleeding; K29.00 Acute gastritis without bleeding; I10 Essential (primary) hypertension; E78.5 Hyperlipidemia, unspecified; J44.9 Chronic obstructive pulmonary disease, unspecified; H91.90 Unspecified hearing loss, unspecified ear; F17.210 Nicotine dependence, cigarettes, uncomplicated; F17.220 Nicotine dependence, chewing tobacco, uncomplicated; G47.31 Primary central sleep apnea; Z79.899 Other long term (current) drug therapy; Z86.0101 Personal history of adenomatous and serrated colon polyps
CPT/HCPCS: 43239; 45385; 88305; J2704; J3535; J7030

== ENCOUNTER → 2025-01-24 14:12 | Outpatient (BNVA) | payer MEDICAID, SELFPAY | PROVIDERS: PCP Family Medicine; Visit Provider Student in an Organized Health Care Education/Training Program | DX: Z09 Encounter for follow-up examination after completed treatment for conditions other than malignant neoplasm (principal) | CPT/HCPCS: 99213 ==